=== PATIENT | female | born 1985 | race Caucasian/White ===

== ENCOUNTER 2016-09-25 18:18 | Emergency (ER) | payer OTHER ==
[~2016-09-25 18:18] MED LIST: ATARAX PO; VICODIN 5/1 TAB 5/50 DOB
== END 2016-09-25 21:28 | disposition home or self-care (01) ==
LOC: CFTX 18:18 → CED 18:18 → CFTX 21:27
DX: S00.93XA Contusion of unspecified part of head, initial encounter (principal); F17.210 Nicotine dependence, cigarettes, uncomplicated; V43.52XA Car driver injured in collision with other type car in traffic accident, initial encounter; Y92.89 Other specified places as the place of occurrence of the external cause
CPT/HCPCS: 99283

== ENCOUNTER 2016-11-22 14:55 | Emergency (ER) | payer OTHER ==
--- NOTE | ~2016-11-22 | CT16 ---
[facility] A Service of [facility] & [facility] RADIOLOGY TEXT RESULTS PATIENT: NILSA WHITE LOCATION: SED : 85 UNIT #: [id number] AGE: [address]: Sarah Fulton MD SEX: F ORDER DR: [id number] [address] [address] [id number] E MR#: [id number] Acc #: [id number] NAME: NILSA WHITE. : 1985 SEX: F STUDY DATE/TIME: 11/22/2016 17:15 UNIT: SED ROOM: STUDY DESCRIPTION: CT Angio Chest for PE Attending Physician: Sarah Fulton M.D. Ordering Physician: Sarah Fulton M.D. Primary Care Physician: Sonali Penn D.O. MEDICAL IMAGING REPORT This report is preliminary unless electronic signature is present. REVISED REPORT SEE ADDENDUM EXAM CT chest PE protocol. HISTORY Left arm tingling and going numb chest pain x3 days FINDINGS Axial images performed through the chest following IV contrast. 3-D coronal and sagittal reconstructed images performed. The CT exam was performed with one or more of the following radiation dose reduction techniques: automatic exposure control, adjustment of mA and/or kV according to patient size, and iterative reconstruction. Examination demonstrates multiple parenchymal opacities throughout both lungs most prominent in the lung bases with areas of consolidation and at least 2 lesions which demonstrate some early cavitation or central lucency. Area of consolidation most prominent within the medial aspect left lower lobe and within the inferior lingular segment and to a lesser extent right lower lobe. These appear to be predominately peripheral or subpleural in distribution. Findings are nonspecific but are highly concerning for possible septic emboli in this patient. Correlate for risk factors. Background parenchyma appears normal. There is a minimal left pleural effusion. Trachea and bronchi unremarkable. Suboptimal opacification of the pulmonary arteries but no gross evidence of pulmonary emboli. There is shotty mediastinal and hilar lymphadenopathy. Upper abdomen remarkable for unusual enhancement along the anterior margin of the liver. Etiology unclear. Osseous structures unremarkable. Thoracic inlet appears normal. [facility] A Service [facility] RADIOLOGY TEXT RESULTS PATIENT: NILSA WHITE LOCATION: SED : 85 UNIT #: [id number] AGE: [address]: Sarah Fulton MD SEX: F ORDER DR: IMPRESSION 1. Extensive multifocal airspace disease predominant within a peripheral or subpleural distribution with some areas demonstrating early cavitation particularly in the superior segment left lower lobe and within the right posterior costophrenic sulcus. Differential would include septic emboli or less likely metastatic disease. This could also be seen with Lacey's but typically in patient with known diagnosis. Correlate clinically for risk factors for septic emboli. 2. No convincing evidence of pulmonary emboli, though there is suboptimal opacification of the pulmonary arteries. Dictated by... Sara Zendejas M.D. THIS IS AN ELECTRONICALLY VERIFIED REPORT Sara Zendejas M.D. at 11/23/2016 7:16 AM Kishore TD: 11/23/2016 07:00 JOB #: [id number] This is an addendum on Nilsa Sherwoodannon. ADDENDUM CT chest PE protocol Additional sagittal recons were obtained. Questionable sclerosis within the T1 and C7 vertebral bodies. This may be artifactual due to technique. Etiology unclear. Pending medical evaluation, further evaluation with bone scan may be of benefit. Potentially this could represent metastatic lesions. Dictated by... Ambrose for Sara Zendejas M.D. THIS IS AN ELECTRONICALLY VERIFIED REPORT Sara Zendejas M.D. at 12/01/2016 10:16 AM Kishore TD: 11/23/2016 07:43 JOB #: [id number] [facility] A Service [facility] RADIOLOGY TEXT RESULTS PATIENT: NILSA WHITE LOCATION: SED : 85 UNIT #: [id number] AGE: [address]: Sarah Fulton MD SEX: F ORDER DR: CC: Ava/invision Please Delete MEDICAL IMAGING REPORT Page 1 of 1
--- NOTE | ~2016-11-22 | CR72 ---
[facility]. [facility] A Service of [facility] & [facility] RADIOLOGY TEXT RESULTS PATIENT: NAN WHITE LOCATION: SED : 85 UNIT #: [id number] AGE: [address]: Sarah Fulton MD SEX: F ORDER DR: [id number] [address] [address] [id number] E MR#: [id number] Acc #: [id number] NAME: NAN WHITE : 1985 SEX: F STUDY DATE/TIME: 11/22/2016 15:46 UNIT: SED ROOM: STUDY DESCRIPTION: CR Chest Single View Portable Attending Physician: Sarah Fulton M.D. Ordering Physician: Sarah Fulton M.D. Primary Care Physician: Sonali Penn D.O. MEDICAL IMAGING REPORT This report is preliminary unless electronic signature is present. EXAM Single view of the chest, 11/22/2016 at 1546 hours COMPARISON Chest 2 views dated 06/18/2009 HISTORY Left arm tingling and numbness along with chest pain for 3 days. FINDINGS Frontal view of the chest was obtained. Mild left-sided pleural effusion is seen with associated left lung base atelectasis/infiltrate with mild extension to the left mid lung zone. Mild right lung base, round to oval patchy opacity is also seen measuring about 2 cm at the most. No pneumothorax. Heart is of normal size. These changes are new when compared to the prior chest 2 views from seven years ago. Followup is suggested after treatment to ensure complete resolution. Dictated by... Bridget Messina M.D. THIS IS AN ELECTRONICALLY VERIFIED REPORT Bridget Messina M.D. at 11/23/2016 7:33 PM CPR/ljd TD: 11/23/2016 04:08 JOB #: [id number] MEDICAL IMAGING REPORT Page 1 of 1
--- NOTE | ~2016-11-22 | EKG ---
PATIENT: NAN WHITE UNIT #: [id number] Ventricular Rate: 145 BPM Atrial Rate: 145 BPM P-R Interval: 134 ms QRS Duration: 72 ms Q-T Interval: 268 ms QTC Calculation(Bezet): 416 ms P Hamer: 65 degrees Calculated R Hamer: 84 degrees Calculated T Hamer: 25 degrees Diagnosis Line: Sinus tachycardia Diagnosis Line: Possible Left atrial enlargement Diagnosis Line: Cannot rule out Anterior infarct , age Diagnosis Line: undetermined Diagnosis Line: Abnormal ECG Diagnosis Line: No previous ECGs available Diagnosis Line: Confirmed by MO BAUMAN MD ([id number]) on Diagnosis Line: 11/25/2016 8:39:41 AM INTERPRETING MD: MITUL ALMEIDA
[2016-11-22 15:21] LABS: BASOPHIL# 0.1 X10e3 (0-0.3); BASOPHIL% 0.7 % (0-2.5); HEMATOCRIT 29.8 % (35.0-45.0); HEMOGLOBIN 10.3 gm/dL (12.0-16.0); LYMPHOCYTE# 1.3 X10e3 (1.0-3.5); MEAN CELL VOLUME 82.6 FL (83-96); MEAN CORPUSCULAR HEMOGLOBIN 28.6 PG (28-34); MEAN CORPUSCULAR HGB CONC 34.6 g/dL (30-36); MEAN PLATELET VOLUME 8.4 FL (6.5-11.5); MONOCYTE% 5.9 % (3.0-12.0); NEUTROPHIL# 14.2 X10e3 (1.5-7.1); NEUTROPHIL% 85.4 % (40-75); PLATELET COUNT 263 X10e3 (140-420); RED BLOOD COUNT 3.61 X10e (3.90-5.30); RED CELL DISTRIBUTION WIDTH 13.4 % (11.0-15.5); WHITE BLOOD COUNT 16.6 X10e3 (4.0-10.5)
[2016-11-22 15:36] LABS: DIFF IND NO
[2016-11-22 15:39] LABS: POC - CKMB 1.1 ng/mL (0.0-7.9); POC - TROPONIN <0.05 ng/mL (<=0.05)
[2016-11-22 15:55] LABS: ALBUMIN SERUM 3.3 g/dL (3.5-5.0); BILIRUBIN, DIRECT 0.6 mg/dL (0.0-0.2); BILIRUBIN,INDIRECT 0.9 mg/dL (0.0-0.9); BILIRUBIN,TOTAL 1.5 mg/dL (0.2-2.0); BUN/CREATININE RATIO 11.42; CREATININE SERUM 0.7 mg/dL (0.6-1.4); GLOM FILT RATE Estimated 116.3 mL/min (>60); MAGNESIUM 1.6 mg/dL (1.6-3.0); POTASSIUM 3.1 mmol/L (3.5-5.1); PROTEIN TOTAL SERUM 7.5 g/dL (6.0-8.3)
[2016-11-22 17:07] LABS: POC - CKMB <1.0 ng/mL (0.0-7.9); POC - TROPONIN <0.05 ng/mL (<=0.05)
[2016-11-22 17:23] LABS: URINE SOURCE CLEAN CATCH
[2016-11-22 17:25] LABS: URINE APPEARANCE CLEAR; URINE BLOOD 1+ (NEG); URINE COLOR YELLOW; URINE GLUCOSE NEG (NORM); URINE KETONE TRACE (NEG); URINE LEUKOCYTE ESTERASE NEG (NEG); URINE NITRATE NEG (NEG); URINE PROTEIN 1+ (NEG)
[2016-11-22 17:29] LABS: MICRO INDICATED? YES; URINE BILIRUBIN NEG (NEG)
[2016-11-22 17:33] LABS: CULTURE INDICATED? YES; URINE BACTERIA NEG (NEG); URINE MUCUS PRESENT; URINE SQUAMOUS EPITHELIAL CELL MODERATE /[HPF]
[2016-11-22 17:36] LABS: AMPHETAMINE NEG (NEG); BARBITURATES NEG (NEG); BENZODIAZEPINES NEG (NEG); COCAINE NEG (NEG); MARIJUANA NEG (NEG); OPIATES POS (NEG); TRICYCLIC ANTIDEPRESSANTS NEG (NEG); U METHADONE NEG (NEG)
== END 2016-11-22 22:16 ==
LOC: SED 14:55
PROVIDERS: Student in an Organized Health Care Education/Training Program
DX: A41.9 Sepsis, unspecified organism (principal); R07.9 Chest pain, unspecified; F11.10 Opioid abuse, uncomplicated
CPT/HCPCS: 36415; 71010; 71275; 80048; 80076; 80307; 81003; 82553; 83735; 83880; 84484; 84703; 85025; 87040; 87077; 87086; 87186; 93005; 96361; 96374; 96375; 99285; J1885; J2543; J3360; J3370; Q9967